=== PATIENT | female | born 1980 | race Two or more races ===

== ENCOUNTER 2017-06-09 08:39 | Emergency (ER) | payer OTHER ==
[~2017-06-09] VITALS: Ht 160 cm; Wt 72.6 kg
[2017-06-09 08:39] VITALS: BP_SYST 122
[2017-06-09] MEDS ORDERED: BACITRACIN 1 GM OINT TP ONE (09:30)
[2017-06-09] MEDS ORDERED: IBUPROFEN 800 MG TABLET PO ONE (09:30)
[2017-06-09 10:40] VITALS: BP_SYST 76
== END 2017-06-09 10:40 | disposition home or self-care (01) ==
LOC: SED 08:39
DX: S16.1XXA Strain of muscle, fascia and tendon at neck level, initial encounter (principal); S80.811A Abrasion, right lower leg, initial encounter; V49.9XXA Car occupant (driver) (passenger) injured in unspecified traffic accident, initial encounter; Y93.89 Activity, other specified; Y92.410 Unspecified street and highway as the place of occurrence of the external cause; Y99.9 Unspecified external cause status
CPT/HCPCS: 72040-TC; 81025; 99284